=== PATIENT | female | born 1965 | race Two or more races ===

== ENCOUNTER 2018-12-01 08:32 | Emergency (ER) | payer OTHER ==
[~2018-12-01] VITALS: Ht 172.7 cm; Wt 68.0 kg
[2018-12-01] MEDS ORDERED: LIDOCAINE HCL 2% 20 ML VIAL TP ONE (10:15)
[2018-12-01] MEDS ORDERED: LET TOPICAL SOLUTION 8 ML UDC TOP ONE (10:15)
[2018-12-01] MEDS ORDERED: SODIUM BICARBONATE 4.2 % (NEUT) 5 ML VIAL TP ONE (10:15)
[2018-12-01] MEDS ORDERED: MORPHINE SULFATE 2 MG/1 ML DISP.SYRIN IV ONE (10:15)
[2018-12-01] MEDS ORDERED: ONDANSETRON 4 MG/2 ML VIAL IV ONE (10:15)
[2018-12-01] MEDS ORDERED: SULFAMETH/TRIMETH 800/160 MG TABLET PO ONE (10:15)
[2018-12-01] MEDS ORDERED: MORPHINE SULFATE 4 MG/1 ML DISP.SYRIN ONE (10:35)
[2018-12-01] MEDS ORDERED: LIDOCAINE HCL 2% 20 ML VIAL ONE (10:36)
[2018-12-01] MEDS ORDERED: LET TOPICAL SOLUTION 8 ML UDC ONE (10:36)
[2018-12-01] MEDS ORDERED: SULFAMETH/TRIMETH 800/160 MG TABLET ONE (10:36)
[2018-12-01] MEDS ORDERED: ONDANSETRON 4 MG/2 ML VIAL ONE (10:36)
[2018-12-01] MEDS ORDERED: SODIUM BICARBONATE 4.2 % (NEUT) 5 ML VIAL ONE (10:36)
--- NOTE | 2018-12-01 11:17 | NUR ---
assissted md with I@D of the right labia. a large amount of puss drained. pt tolerated well.
[2018-12-01 11:18] VITALS: BP 121/59
--- NOTE | 2018-12-01 11:21 | NUR ---
Patient discharged to home in stable conditon. Written and verbal after care instructions given. Patient verbalizes understanding of instructions.pt walks in steady gait.
== END 2018-12-01 11:28 | disposition home or self-care (01) ==
LOC: ER 08:32
DX: N75.1 Abscess of Bartholin's gland (principal)
CPT/HCPCS: 56420; 96374; 96375; 99283; J2270; J2405; J3490 ×2; A4663